=== PATIENT | male | born 1970 | race Caucasian/White ===

== ENCOUNTER 2024-12-11 09:04 | Emergency (ER) | payer OTHER ==
[~2024-12-11] VITALS: Ht 177.8 cm; Wt 105.7 kg
[2024-12-11 09:08] VITALS: TEMP 98.7
[2024-12-11] MEDS ORDERED: ASPIRIN 81MG CHEW TABLET As Ordered ONE (09:22)
[2024-12-11] MEDS ORDERED: MORPHINE 4 MG/ML 1ML VIAL As Ordered ONE (09:22)
[2024-12-11] MEDS ORDERED: NITROGLYCERIN 0.4MG SUBL TABLET As Ordered ONE (09:22)
[2024-12-11] MEDS: ASPIRIN 81MG CHEW TABLET PO ONE (09:25)
[2024-12-11] MEDS: NS (Normal Saline) 0.9% 1,000 ML IV ONE (09:25)
[2024-12-11] MEDS ORDERED: ISOVUE-370 76% 100ML VIAL As Ordered ONE (09:25)
[2024-12-11] MEDS: NITROGLYCERIN 0.4MG SUBL TABLET SL PRN (09:26)
[2024-12-11] MEDS: ONDANSETRON 4MG 2ML VIAL IV ONE (09:28)
[2024-12-11] MEDS ORDERED: SEMA0.257 SQ (09:35)
[2024-12-11] MEDS: MORPHINE 4 MG/ML 1ML VIAL IV ONE (09:36)
[2024-12-11 09:44] LABS: BASO # 0.1 10^3/uL (0.0-0.2); BASO % 0.8 % (0.0-1.0); EOS # 0.4 10^3/uL (0.0-0.5); EOS % 3.9 % (0.0-3.0); HEMATOCRIT 51.2 % (42.0-52.0); HEMOGLOBIN 17.1 g/dl (13.5-17.5); LYMPH # 1.8 10^3/uL (1.5-5.0); LYMPH % 19.7 % (24.0-44.0); MEAN CORPUSCULAR HEMOGLOBIN 29.2 pg (27.0-33.0); MEAN CORPUSCULAR HGB CONC 33.4 g/dl (32.0-36.5); MEAN CORPUSCULAR VOLUME 87.4 fl (80.0-96.0); MONO # 0.6 10^3/uL (0.0-0.8); NEUTROPHILS # 6.2 10^3/uL (1.5-8.5); NEUTROPHILS % 68.2 % (36.0-66.0); PLATELET COUNT, AUTOMATED 268 10^3/uL (150-450); RED BLOOD COUNT 5.86 10^6/uL (4.30-6.10); WHITE BLOOD COUNT 9.1 10^3/uL (4.0-10.0)
[2024-12-11 09:55] LABS: VENOUS BASE EXCESS 0.8 (-2.0-2.0); VENOUS HCO3 25.5 MMOL/L (23.0-27.0); VENOUS O2 SATURATION 91.6 % (60.0-80.0); VENOUS PARTIAL PRESSURE CO2 40.8 mmHg (38.0-50.0); VENOUS PARTIAL PRESSURE O2 60.4 mmHg (30.0-50.0); VENOUS PH 7.413 UNITS (7.330-7.430); VENOUS TOTAL CO2 26.7 MMOL/L (24.0-28.0)
[2024-12-11 09:56] LABS: INR 0.81; PARTIAL THROMBOPLASTIN TIME 35.8 SECONDS (24.8-34.2); PROTHROMBIN TIME 11.5 SECONDS (12.5-14.5)
[2024-12-11 09:57] VITALS: BP 132/86
[2024-12-11] MEDS: MORPHINE 2 MG/ML 1ML VIAL IV PRN ×2 (10:00→10:50)
[2024-12-11 10:05] LABS: LIPASE 38 U/L (12-53)
[2024-12-11] MEDS: NITROGLYCERIN/D5W 100MCG/ML 25 MG in IV 1 EA IV SCH (10:07)
[2024-12-11 10:09] LABS: ALBUMIN 4.2 G/DL (3.2-5.2); ALKALINE PHOSPHATASE 71 U/L (40-129); ALT/SGPT 32 U/L (7.0-40); AST/SGOT 39 U/L (<34); BILIRUBIN,DIRECT 0.1 MG/DL (<0.4); BILIRUBIN,TOTAL 0.4 MG/DL (0.3-1.2); BLOOD UREA NITROGEN 18 MG/DL (9-23); CALCIUM LEVEL 9.5 MG/DL (8.5-10.1); CARBON DIOXIDE LEVEL 27 MMOL/L (20-31); CHLORIDE LEVEL 106 MMOL/L (98-107); CK-MB VALUE MASS 4.7 NG/ML (<3.6); CREATININE FOR GFR 0.83 MG/DL (0.70-1.30); FREE T4 1.32 NG/DL (0.89-1.76); GLOMERULAR FILTRATION RATE > 90.0 (>56); GLUCOSE, FASTING 107 MG/DL (60-100); POTASSIUM SERUM 4.8 MMOL/L (3.5-5.1); SODIUM LEVEL 143 MMOL/L (136-145); THYROID STIMULATING HORMONE 2.637 uIU/ML (0.55-4.78); TOTAL PROTEIN 7.3 G/DL (5.7-8.2)
[2024-12-11 10:11] LABS: CPK CREATINE PHOSPHOKINASE 325 U/L (46-171); MB/CK RELATIVE INDEX 1.44 (< OR =4)
[2024-12-11] MEDS: FAMOTIDINE 20 MG TAB PO ONE (10:27)
[2024-12-11] MEDS: HEPARIN SOD (PORCINE) 5000UNITS/ML 1ML VIAL/SYRINGE IV ONE (10:28)
[2024-12-11] MEDS: HEPARIN DRIP 25,000 UNITS in IV 1 EA IV SCH (10:29)
[2024-12-11] MEDS ORDERED: MORPHINE 2 MG/ML 1ML VIAL IV PRN ×2 (10:45→10:50)
[2024-12-11 11:10] VITALS: BP 125/72; O2SAT 99
[2024-12-11 11:13] LABS: CK-MB VALUE MASS 4.4 NG/ML (<3.6)
[2024-12-11 11:24] LABS: MB/CK RELATIVE INDEX 1.51 (< OR =4)
== END 2024-12-11 11:10 | disposition short-term general hospital (02) ==
LOC: M ED 09:04
DX: I21.4 Non-ST elevation (NSTEMI) myocardial infarction (principal); I10 Essential (primary) hypertension; K57.92 Diverticulitis of intestine, part unspecified, without perforation or abscess without bleeding; F17.200 Nicotine dependence, unspecified, uncomplicated; F12.10 Cannabis abuse, uncomplicated; Z91.018 Allergy to other foods
CPT/HCPCS: 71045; 71275; 80047; 80048; 80076; 82550; 82553; 82803; 83690; 83735; 83880; 84439; 84443; 84484; 85025; 85610; 85730; 87040; 87486; 87581; 87633; 87798; 93005; 93041; 94760; 96361; 96365; 96368; 96375; 96376; 99285; J2305; J2405; Q9967

== ENCOUNTER 2024-12-28 08:45 | Emergency (ER) | payer OTHER ==
[~2024-12-28] VITALS: Ht 177.8 cm; Wt 100.5 kg
[~2024-12-28 08:45] MED LIST: SEMA0.257 SQ
[2024-12-28] MEDS ORDERED: ASPI-226 (08:57)
[2024-12-28] MEDS ORDERED: NITR0.4S14 (08:57)
[2024-12-28] MEDS ORDERED: METO1TAB87 (08:57)
[2024-12-28] MEDS ORDERED: PRAS10TA2 (09:21)
[2024-12-28 09:32] LABS: BASO # 0.1 10^3/uL (0.0-0.2); BASO % 0.7 % (0.0-1.0); EOS # 0.2 10^3/uL (0.0-0.5); EOS % 2.8 % (0.0-3.0); HEMATOCRIT 47.2 % (42.0-52.0); HEMOGLOBIN 15.6 g/dl (13.5-17.5); LYMPH # 1.7 10^3/uL (1.5-5.0); LYMPH % 20.7 % (24.0-44.0); MEAN CORPUSCULAR HGB CONC 33.1 g/dl (32.0-36.5); MEAN CORPUSCULAR VOLUME 87.7 fl (80.0-96.0); MONO # 0.6 10^3/uL (0.0-0.8); MONO % 6.8 % (2.0-8.0); NEUTROPHILS # 5.6 10^3/uL (1.5-8.5); NEUTROPHILS % 68.8 % (36.0-66.0); PLATELET COUNT, AUTOMATED 269 10^3/uL (150-450); RED BLOOD COUNT 5.38 10^6/uL (4.30-6.10); WHITE BLOOD COUNT 8.1 10^3/uL (4.0-10.0)
[2024-12-28 09:58] LABS: CK-MB VALUE MASS 2.4 NG/ML (<3.6)
[2024-12-28 10:00] LABS: BLOOD UREA NITROGEN 16 MG/DL (9-23); CALCIUM LEVEL 9.6 MG/DL (8.5-10.1); CARBON DIOXIDE LEVEL 27 MMOL/L (20-31); CHLORIDE LEVEL 108 MMOL/L (98-107); CREATININE FOR GFR 0.79 MG/DL (0.70-1.30); GLOMERULAR FILTRATION RATE > 90.0 (>56); GLUCOSE, FASTING 93 MG/DL (60-100); POTASSIUM SERUM 4.7 MMOL/L (3.5-5.1); SODIUM LEVEL 144 MMOL/L (136-145)
[2024-12-28 10:05] LABS: CPK CREATINE PHOSPHOKINASE 274 U/L (46-171); MB/CK RELATIVE INDEX 0.87 (< OR =4)
[2024-12-28 11:16] LABS: CK-MB VALUE MASS 1.6 NG/ML (<3.6)
[2024-12-28 11:24] LABS: MB/CK RELATIVE INDEX 0.8 (< OR =4)
[2024-12-28 14:37] VITALS: BP 143/97; TEMP 97.7; O2SAT 97
== END 2024-12-28 14:46 | disposition home or self-care (01) ==
LOC: M ED 08:45
DX: R07.89 Other chest pain (principal); I10 Essential (primary) hypertension; I25.10 Atherosclerotic heart disease of native coronary artery without angina pectoris; I25.2 Old myocardial infarction; Z95.5 Presence of coronary angioplasty implant and graft; F17.200 Nicotine dependence, unspecified, uncomplicated; Z79.4 Long term (current) use of insulin; Z91.018 Allergy to other foods

== ENCOUNTER → 2025-03-13 | Outpatient (CLI) | payer OTHER ==
[~2025-03-13] MED LIST changes: +ASPI-226; +METO1TAB87; +NITR0.4S14; +PRAS10TA2
[2025-03-13 15:28] LABS: ESTIMATED AVERAGE GLUCOSE 108.0 MG/DL (60-110)
[2025-03-13 15:40] LABS: CHOLESTEROL LEVEL 132.0 MG/DL (<200); CHOLESTEROL RISK RATIO 2.57 (<5); LDL CHOLESTEROL 59.8 MG/DL (<100); NON-HDL-C 80.8 MG/DL; TRIGLYCERIDES LEVEL 105.0 MG/DL (<150)
== END ==
LOC: M LAB 14:28
PROVIDERS: ATTEND Internal Medicine Cardiovascular Disease
DX: E78.00 Pure hypercholesterolemia, unspecified (principal); R73.03 Prediabetes